=== PATIENT | female | born 1980 ===

== ENCOUNTER 2023-08-13 17:55 | Outpatient (REF) | payer BC, SELFPAY ==
[2023-08-13 22:02] LABS: C Diff PCR Negative (Negative)
[2023-08-14 20:35] LABS: Campylobacter PCR Negative (Negative); Salmonella PCR Negative (Negative); Shiga Toxin PCR Negative (Negative); Shigella/Enteroinvasive Ecoli Negative (Negative)
== END 2023-08-13 17:56 | disposition home or self-care (01) ==
LOC: NCHCN 17:55
PROVIDERS: Visit Provider Physician Assistant
DX: R19.7 Diarrhea, unspecified (principal)
CPT/HCPCS: 87329; 87493; 87505; 83630; 87177

== ENCOUNTER 2023-08-29 11:34 | Outpatient (REF) | payer BC, SELFPAY ==
[2023-08-29 14:32] LABS: Abs Immature Grans 0.02 10^3/uL (0.0-0.06); Absolute Basophil Count 0.12 10^3/uL (0.0-0.2); Absolute Eosinophil Count 0.15 10^3/uL (0.0-0.7); Absolute Lymphocyte Count 2.53 10^3/uL (1.2-3.4); Absolute Monocyte Count 0.86 10^3/uL (0.1-0.8); Absolute Neutrophil Count 4.11 10^3/uL (1.2-6.7); Basophils % 1.5 %; Eosinophils % 1.9 %; HGB 15.6 g/dL (11.2-15.7); Immature Grans % 0.3 %; Lymphocytes % 32.5 %; MCH 32.9 pg (27.0-33.0); MCHC 33.9 % (32.0-36.0); MCV 97 fL (80-95); MPV 10.4 fL (8.0-11.0); Neutrophils % 52.8 %; Platelet Count 277 10^3/uL (130-400); RBC 4.74 10^6/uL (3.93-5.22); RDW 11.5 % (11.7-14.6); RDW-SD 41.5 fL; WBC 7.79 10^3/uL (4.4-10.8)
[2023-08-29 14:59] LABS: ALT 24 U/L (14-59); AST 16 U/L (15-37); Albumin 4.6 g/dL (3.4-5.0); Alkaline Phosphatase 79 U/L (46-116); BUN 8 mg/dL (7-18); CREATININE 0.8 mg/dL (0.55-1.02); Calcium 9.6 mg/dL (8.5-10.1); Chloride 102 mmol/L (98-107); Estimated GFR 93.12 (mL/min/1.73m2); Glucose 92 mg/dL (74-106); Potassium 4.8 mmol/L (3.5-5.1); Sodium 139 mmol/L (136-145); Total Protein 8.4 g/dL (6.4-8.2)
[2023-09-01 11:36] LABS: IgA 256 mg/dL (85-499); Interpretation (See Note); Tissue Transglutaminase IgA <4.0 CU (<20.0)
== END 2023-08-29 11:35 | disposition home or self-care (01) ==
LOC: NCHCN 11:34
PROVIDERS: Visit Provider Physician Assistant
DX: R19.7 Diarrhea, unspecified (principal)
CPT/HCPCS: 80053; 82784; 83516; 85025